=== PATIENT | female | born 1985 | race Caucasian/White ===

== ENCOUNTER → 2024-02-26 16:47 | Outpatient (REF) | payer OTHER, SELFPAY | LOC: PNTC 16:47 | PROVIDERS: ATTENDING PHYSICIAN Obstetrics & Gynecology | DX: Z36.0 Encounter for antenatal screening for chromosomal anomalies (principal) | CPT/HCPCS: 76801; 76813 ==

== ENCOUNTER → 2024-03-18 13:18 | Outpatient (REF) | payer OTHER, SELFPAY | LOC: PNTC 13:18 | PROVIDERS: ATTENDING PHYSICIAN Obstetrics & Gynecology | DX: O99.350 Diseases of the nervous system complicating pregnancy, unspecified trimester (principal); O99.212 Obesity complicating pregnancy, second trimester | CPT/HCPCS: 76805 ==

== ENCOUNTER → 2024-04-15 15:50 | Outpatient (REF) | payer OTHER, SELFPAY | LOC: PNTC 15:50 | PROVIDERS: ATTENDING PHYSICIAN Obstetrics & Gynecology | DX: O99.210 Obesity complicating pregnancy, unspecified trimester (principal); O99.350 Diseases of the nervous system complicating pregnancy, unspecified trimester | CPT/HCPCS: 76811 ==

== ENCOUNTER 2024-08-27 16:23 | Observation (INO) | payer OTHER, SELFPAY ==
[2024-08-27 16:30] VITALS: BP 157/94; BMI 35.5
== END 2024-08-27 18:16 | disposition home or self-care (01) ==
LOC: LDRP 16:23
PROVIDERS: ADMITTING PHYSICIAN Obstetrics & Gynecology
DX: O47.1 False labor at or after 37 completed weeks of gestation (principal); Z3A.39 39 weeks gestation of pregnancy
CPT/HCPCS: 59899; G0378

== ENCOUNTER 2024-08-31 19:27 | Inpatient (IN) | payer OTHER, SELFPAY ==
[2024-08-31 19:34] VITALS: BMI 35.5
[2024-08-31 20:07] VITALS: BP 137/94
[2024-08-31 20:46] LABS: % Basophils 0.3 % (0-2); % Eosinophils 0.3 % (0-6); % Lymphocytes 11.9 % (20.5-51.1); % Monocytes 6.6 % (1.7-9.3); % Neutrophils 79.9 % (42.2-75.2); Absolute Immature Granulocytes 0.1 10^3/uL (0-0.05); Absolute Lymphocytes 1.6 10^3/uL (1.2-3.4); Absolute Monocytes 0.9 10^3/uL (0.1-0.6); Absolute Neutrophils 10.8 10^3/uL (1.4-6.5); Hematocrit 36.3 % (37.0-47.0); Hemoglobin 13.3 g/dL (12.0-16.0); Mean Corp Hgb Conc. 36.6 g/dL (33.0-37.0); Mean Corpuscular Hgb 31.7 pg (27.0-31.0); Mean Corpuscular Volume 86.4 fL (81.0-99.0); Mean Platelet Volume 10.9 fL (7.4-10.4); Nucleated Red Blood Cells % 0 %; Platelet Count 253 10^3/uL (130-400); White Blood Cell Count 13.5 10^3/uL (4.8-10.8)
[2024-09-01] MEDS: CYTOTEC 25 MICROGRAM VAG (00:18)
[2024-09-01] MEDS: CYTOTEC PO ×3 (06:45→21:15)
[2024-09-01] MEDS: CYTOTEC 50 MICROGRAM PO ×2 (09:52→13:52)
[2024-09-01] MEDS: PITOCIN 30 UNITS/NSS 500 ML IV (21:08)
[2024-09-01] MEDS: LR 1000 IV (21:08)
[2024-09-02] MEDS: CYTOTEC PO (00:02)
[2024-09-02] MEDS: SUBLIMAZE 100 MCG EPIDURAL (00:19)
[2024-09-02] MEDS: FENTANYL/BUPIVACAINE 100 EPIDURAL (00:19)
[2024-09-02] MEDS: VANCOCIN 530 MG IV (04:15)
[2024-09-02 04:42] LABS: Cord ABG Comment CORD BLOOD
[2024-09-02 04:43] LABS: B.E. Cord ABG -8.3 mMOL/L; HCO3 Cord ABG 21.7 mmol/L; O2 Saturation % Cord ABG 22.4 %; PCO2 Cord ABG 61 mmHg; PO2 Cord ABG 13 mmHg; pH Cord ABG 7.16
[2024-09-02 04:48] LABS: B.E. Cord ABG -7.5 mMOL/L; O2 Saturation % Cord ABG 11.5 %; PCO2 Cord ABG 59 mmHg; PO2 Cord ABG 6 mmHg; pH Cord ABG 7.18
[2024-09-02] MEDS: ZYRTEC 10 MG PO ×2 (10:00→10:11)
[2024-09-02] MEDS: TORADOL 15 MG IV ×3 (11:02→22:50)
--- NOTE | 2024-09-02 20:12 | W.PN.ANS.POP ---
Anesthesia Post Operative
- Anesthesia Post Op Note
Vital Signs Stable-See Nursing Note: Yes
Airway Patent: Yes
Adequate Pain Control: Yes
Change in Mental Status: No
Current Postoperative Nausea & Vomiting: No
Anesthesia Complications: No
General Anesthetic Recall: No
Unplanned Admission: No
Post Op Hydration Adequate: Yes
[2024-09-02] MEDS: MYLICON 80 MG PO (23:02)
[2024-09-03] MEDS: TORADOL 15 MG IV (04:33)
[2024-09-03] MEDS: PERCOCET 5/325 1 TABLET PO ×5 (04:53→23:30)
[2024-09-03 05:26] LABS: Hematocrit 31.2 % (37.0-47.0); Hemoglobin 11.1 g/dL (12.0-16.0); Mean Corp Hgb Conc. 35.6 g/dL (33.0-37.0); Mean Corpuscular Hgb 31.9 pg (27.0-31.0); Mean Corpuscular Volume 89.7 fL (81.0-99.0); Mean Platelet Volume 10.8 fL (7.4-10.4); Platelet Count 199 10^3/uL (130-400); Red Blood Cell Count 3.48 10^6/uL (4.20-5.40); Red Cell Dist. Width 13.1 % (11.5-14.5); White Blood Cell Count 15.1 10^3/uL (4.8-10.8)
[2024-09-03] MEDS: ZYRTEC 10 MG PO (08:17)
[2024-09-03] MEDS: MOTRIN 600 MG PO ×3 (11:45→23:30)
[2024-09-03] MEDS: SENOKOT-S 1 TABLET PO (11:45)
[2024-09-03 11:51] LABS: Syphilis/T. pallidum Ab Reflex Negative (Negative)
[2024-09-03] MEDS: MYLICON 80 MG PO (18:00)
[2024-09-04] MEDS: PERCOCET 5/325 1 TABLET PO ×4 (05:36→23:37)
[2024-09-04] MEDS: MOTRIN 600 MG PO ×4 (05:37→23:37)
[2024-09-04] MEDS: ZYRTEC 10 MG PO (09:03)
[2024-09-04] MEDS: MYLICON 80 MG PO (09:09)
[2024-09-04] MEDS: SENOKOT-S 1 TABLET PO (09:09)
--- NOTE | 2024-09-05 04:18 | W.DS.TRANS ---
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
-
Discharge Instructions:
Discharge Diagnosis/Procedures s/p low-transverse section
Instructions:
Stand-Alone Forms: LDRP Delivery
Changes to Home Medications: No
Discharge Medications:
DC Medications w/original date entered in [facility]
Vitamin 1 tab PO DAILY Supplement 08/27/24
cetirizine 10 mg tablet (Zyrtec) 10 mg PO DAILY Allergies 08/27/24
ergocalciferol (vitamin D2) 1,000 unit capsule 4,000 mcg PO DAILY Supplement 08/27/24
acetaminophen 325 mg tablet 650 mg (2 x 325 mg) PO Q4HPRN PRN mild pain #0 tabs 09/04/24
ibuprofen 600 mg tablet 600 mg PO Q6HPRN PRN cramps/pain #60 tabs 09/04/24
oxycodone 5 mg tablet 5 mg PO Q4H PRN severe pain #5 tabs 09/04/24
sennosides 8.6 mg-docusate sodium 50 mg capsule 1 tab-cap PO DAILYPRN PRN constipation #30 caps 09/04/24
Home Medication Changes
Pending Results: No
Total time spent discharging patient (in min): 20
[2024-09-05] MEDS: MOTRIN 600 MG PO ×2 (05:58→11:38)
[2024-09-05] MEDS: PERCOCET 5/325 1 TABLET PO ×2 (05:58→11:38)
[2024-09-05] MEDS: MYLICON 80 MG PO (08:32)
[2024-09-05] MEDS: SENOKOT-S 1 TABLET PO (08:32)
[2024-09-05] MEDS: ZYRTEC 10 MG PO (08:32)
== END 2024-09-05 14:02 | disposition home or self-care (01) | DRG 787 ==
LOC: LDRP 19:27
PROVIDERS: Obstetrics & Gynecology; Student in an Organized Health Care Education/Training Program; ADMITTING PHYSICIAN Obstetrics & Gynecology
PROC: 3E0P7VZ Introduction of Hormone into Female Reproductive, Via Natural or Artificial Opening (ICD-10-PCS; 2024-08-31)
PROC: 10D00Z1 Extraction of Products of Conception, Low, Open Approach (ICD-10-PCS; 2024-09-01)
PROC: 0U520ZZ Destruction of Bilateral Ovaries, Open Approach (ICD-10-PCS; 2024-09-01)
PROC: 4A1HXCZ Monitoring of Products of Conception, Cardiac Rate, External Approach (ICD-10-PCS; 2024-09-01)
DX: O76 Abnormality in fetal heart rate and rhythm complicating labor and delivery (principal); O99.354 Diseases of the nervous system complicating childbirth; O43.193 Other malformation of placenta, third trimester; G35 Multiple sclerosis; N80.113 Superficial endometriosis of bilateral ovaries; O99.892 Other specified diseases and conditions complicating childbirth; Z3A.40 40 weeks gestation of pregnancy; Z37.0 Single live birth; Z88.0 Allergy status to penicillin; Z88.2 Allergy status to sulfonamides
CPT/HCPCS: 88307; 36415; 82803; 85025; 85027; 86780; 86850; 86900; 86901